=== PATIENT | female | born 1985 | race American Indian/Alaskan Native ===

== ENCOUNTER 2016-12-18 14:30 | Day surgery (SDC) | payer MEDICAID ==
[2016-12-18] MEDS ORDERED: NACL 0.9% 1000 ML 1,000 ML IV ONE ×2 (15:01→16:24)
[2016-12-18] MEDS ORDERED: TORADOL IV ONE (15:10)
[2016-12-18 15:44] LABS: Basophils % (Auto) 0.3 % (0.0-1.8); Eosinophils % (Auto) 0.3 % (0.0-4.3); Hematocrit 33.1 % (30.3-42.9); Hemoglobin 10.9 gm/dl (10.1-14.3); Mean Corpuscular HGB Conc 33 % (30-34); Mean Corpuscular Hemoglobin 29 pg (28-32); Mean Corpuscular Volume 87 fl (79-97); Platelet Count 228 K/mm3 (140-440); Red Blood Count 3.83 M/mm3 (3.65-5.03); Red Cell Distribution Width 13.2 % (13.2-15.2); White Blood Count 11.3 K/mm3 (4.5-11.0)
[2016-12-18 15:57] LABS: Anion Gap 19 mmol/L; BUN/Creatinine Ratio 11.25; Blood Urea Nitrogen 9 mg/dL (7-17); Calcium 8.6 mg/dL (8.4-10.2); Carbon Dioxide 21 mmol/L (22-30); Chloride 100.7 mmol/L (98-107); Glucose 123 mg/dL (65-100); Potassium 3.8 mmol/L (3.6-5.0); Sodium 137 mmol/L (137-145)
--- NOTE | 2016-12-18 16:55 | Ultrasound Report ---
FINAL REPORT EXAM: US OB TRANSVAGINAL HISTORY: vag bleeding, hypotension, recent miscaraige TECHNIQUE: Ultrasound obstetrical transvaginal PRIORS: None. FINDINGS: There is a hypoechoic ovoid focus within the cervix and lower uterine segment likely reflecting a gestational sac. Few echoes are seen internally no pole or yolk sac identified. No focal myometrial abnormality seen. Endometrial thickness is 1.7 centimeters The right ovary is 3.0 x 1.7 x 2.6 centimeters. Left ovary is 2.3 x 1.5 x 2.7 centimeters. No abnormal mass or cyst identified no free fluid seen within the cul-de-sac IMPRESSION: Hypoechoic focus at the cervix and lower uterine segment likely reflects gestational sac. No pole or yolk sac identified. Findings likely reflect spontaneous AB in progress.
--- NOTE | 2016-12-18 16:56 | Ultrasound Report ---
FINAL REPORT EXAM: US OB \T\lt; = 14 WEEKS FETUS HISTORY: vag bleeding, hypotension, recent miscaraige TECHNIQUE: Ultrasound obstetrical transabdominal PRIORS: None. FINDINGS: FINDINGS: There is a hypoechoic ovoid focus within the cervix and lower uterine segment likely reflecting a gestational sac. Few echoes are seen internally no pole or yolk sac identified. No focal myometrial abnormality seen. Endometrial thickness is 1.7 centimeters The right ovary is 3.0 x 1.7 x 2.6 centimeters. Left ovary is 2.3 x 1.5 x 2.7 centimeters. No abnormal mass or cyst identified no free fluid seen within the cul-de-sac IMPRESSION: Hypoechoic focus at the cervix and lower uterine segment likely reflects gestational sac. No pole or yolk sac identified. Findings likely reflect spontaneous AB in progress.
--- NOTE | 2016-12-18 16:59 | Emergency Department Report ---
ED Female HPI - General Chief complaint: Vaginal Bleeding Stated complaint: MISCARRIAGE Time Seen by Provider: 12/18/16 15:01 Source: patient, family Mode of arrival: Wheelchair Limitations: Physical Limitation - History of Present Illness Initial comments: 31-year-old female with no significant past medical history presents to the hospital complaining of and vaginal bleeding. Patient states she is having a miscarriage. She was seen 2 by My FUNDRAISING ASSISTANT. First she had an IUP but when she followed up yesterday no IUP was seen. Therefore patient was treated as a miscarriage and is scheduled for D&C on December 21. Patient has been having intermittent vaginal spotting but today bleeding increased with 4 pads used since this morning. She complains of moderate to severe suprapubic crampy pain that is worse with palpation. She also still lightheaded and dizzy. This is her fifth and she has 3 living children and one previous . - Related Data Home Medications Medication Instructions Recorded Confirmed Last Taken No Known Home Medications [No 12/18/16 12/18/16 Unknown Reported Home Medications] Allergies Allergy/AdvReac Type Severity Reaction Status Date / Time Fish Containing Products AdvReac Intermediate Hives Verified 08/23/14 00:04 ED Review of Systems ROS: Stated complaint: MISCARRIAGE Other details as noted in HPI Comment: All other systems reviewed and negative Other: Constitutional: No fevers chills Eyes: No eye pain visual changes ENT: No ear pain or throat pain Neck: Denies pain Respiratory: Denies cough wheezing shortness of breath Cardiovascular: Denies chest pain, palpitations GI: Denies aausea, vomiting, diarrhea : Denies dysuria Musculoskeletal: Denies back pain, joint swelling Skin: Denies rash, lesions, erythema Neurologic: Denies headache, numbness, weakness Psychiatric: Denies suicidal ideation, hallucinations ED Past Medical Hx - Past Medical History Previous Medical History?: Yes Hx Hypertension: No Hx Congestive Heart Failure: No Hx Diabetes: No Hx Deep Vein Thrombosis: No Hx Renal Disease: No Hx Sickle Cell Disease: No Hx Seizures: No Hx Asthma: No Hx COPD: No Hx HIV: No - Surgical History Past Surgical History?: No - Social History Smoking Status: Never Smoker Substance Use Type: Alcohol - Medications Home Medications: Home Medications Medication Instructions Recorded Confirmed Last Taken Type No Known Home Medications [No 07/29/17 07/29/17 Unknown History Reported Home Medications] ED Physical Exam - General Limitations: Physical Limitation - Other Other exam information: General: No limitations, patient is alert in no acute distress Head exam: Atraumatic, normocephalic Eyes exam: Normal appearance, pupils equal reactive to light, extraocular movements intact ENT: Moist mucous membrane, normal oropharynx Neck exam: Normal inspection, full range of motion, no meningismus nontender Respiratory exam: Clear to auscultation bilateral, no wheezes, rales, crackles Cardiovascular: Normal rate and rhythm, normal heart sounds Abdomen: Soft, nondistended, suprapubic tenderness, with normal bowel sounds, no rebound, or guarding Extremity: Full range of motion normal inspection no deformity Back: Normal Inspection, full range of motion, no tenderness Neurologic: Alert, oriented x3, cranial nerves intact, no motor or sensory deficit Psychiatric: normal affect, normal mood Skin: Warm, dry, intact ED Course Vital Signs 12/18/16 12/18/16 12/18/16 14:36 16:34 16:35 Temperature 98.1 F Pulse Rate 76 80 Respiratory 14 16 16 Rate Blood Pressure 75/45 Blood Pressure 103/61 [Left] O2 Sat by Pulse 100 100 100 Oximetry - Reevaluation(s) Reevaluation #1: 12/18/16 17:01 Blood pressure improving with normal saline. Toradol was given for pain 12/18/16 18:04 Pain improved after toradol - Consultations Consultation #1: 12/18/16 17:46 case D/w Dr Katz, take pt to OR for d and c ED Medical Decision Making - Lab Data Result diagrams: 12/18/16 15:18 12/18/16 15:18 Lab Results 12/18/16 12/18/16 12/18/16 Range/Units 15:18 15:18 15:18 WBC 11.3 H (4.5-11.0) K/mm3 RBC 3.83 (3.65-5.03) M/mm3 Hgb 10.9 (10.1-14.3) gm/dl Hct 33.1 (30.3-42.9) % MCV 87 (79-97) fl MCH 29 (28-32) pg MCHC 33 (30-34) % RDW 13.2 (13.2-15.2) % Plt Count 228 (140-440) K/mm3 Lymph % (Auto) 13.0 L (13.4-35.0) % Harper % (Auto) 3.5 (0.0-7.3) % Eos % (Auto) 0.3 (0.0-4.3) % Baso % (Auto) 0.3 (0.0-1.8) % Lymph # 1.5 (1.2-5.4) K/mm3 Harper # 0.4 (0.0-0.8) K/mm3 Eos # 0.0 (0.0-0.4) K/mm3 Baso # 0.0 (0.0-0.1) K/mm3 Seg Neutrophils % 82.9 H (40.0-70.0) % Seg Neutrophils # 9.3 H (1.8-7.7) K/mm3 Sodium 137 (137-145) mmol/L Potassium 3.8 (3.6-5.0) mmol/L Chloride 100.7 (98-107) mmol/L Carbon Dioxide 21 L (22-30) mmol/L Anion Gap 19 mmol/L BUN 9 (7-17) mg/dL Creatinine 0.8 (0.7-1.2) mg/dL Estimated GFR > 60 ml/min BUN/Creatinine Ratio 11.25 % Glucose 123 H (65-100) mg/dL Calcium 8.6 (8.4-10.2) mg/dL HCG, Quant 2695 H (0-4) mIU/mL Blood Type Antibody Screen ISMAEL Antibody Screen 12/18/16 Range/Units 15:21 WBC (4.5-11.0) K/mm3 RBC (3.65-5.03) M/mm3 Hgb (10.1-14.3) gm/dl Hct (30.3-42.9) % MCV (79-97) fl MCH (28-32) pg MCHC (30-34) % RDW (13.2-15.2) % Plt Count (140-440) K/mm3 Lymph % (Auto) (13.4-35.0) % Harper % (Auto) (0.0-7.3) % Eos % (Auto) (0.0-4.3) % Baso % (Auto) (0.0-1.8) % Lymph # (1.2-5.4) K/mm3 Harper # (0.0-0.8) K/mm3 Eos # (0.0-0.4) K/mm3 Baso # (0.0-0.1) K/mm3 Seg Neutrophils % (40.0-70.0) % Seg Neutrophils # (1.8-7.7) K/mm3 Sodium (137-145) mmol/L Potassium (3.6-5.0) mmol/L Chloride (98-107) mmol/L Carbon Dioxide (22-30) mmol/L Anion Gap mmol/L BUN (7-17) mg/dL Creatinine (0.7-1.2) mg/dL Estimated GFR ml/min BUN/Creatinine Ratio % Glucose (65-100) mg/dL Calcium (8.4-10.2) mg/dL HCG, Quant (0-4) mIU/mL Blood Type O POSITIVE Antibody Screen TNR ISMAEL Antibody Screen Negative - Radiology Data Radiology results: report reviewed Transvaginal/pelvic ultrasound: Hyperechoic focus at the cervix and lower uterine segment likely reflects gestational sac. No pole or yolk sac identified. Findings likely reflect spontaneous in progress - Medical Decision Making Patient's BP improved with IV fluids. H&H normal range at this time. Patient does not require RhoGAM based on blood type. Pt has been accepted by Dr Katz and will be transferred to OR for d and c - Differential Diagnosis miscarriage, ectopic, anemia, infection Critical Care Time: No Critical care attestation.: If time is entered above; I have spent that time in minutes in the direct care of this critically ill patient, excluding procedure time. ED Disposition Clinical Impression: Vaginal bleeding, Hypotension, Spontaneous Disposition: -09 OP ADMIT IP TO THIS HOSP Is pt being admited?: Yes Condition: Stable Time of Disposition: 17:46 (Dr Katz/OR)
--- NOTE | 2016-12-18 18:39 | Short Stay Summary ---
Short Stay Documentation Date of service: 12/18/16 Narrative H&P: 31 yo [id number] at 7wk 6d EGA seen in office Tuesday and found to have missed AB with empty sac. She was scheduled for D&C on TuesdayDec 21 but came into today with sx blood loss but normal Hct and pulse rate but low BP and bleeding and cramping. She will be taken to OR for suction curettage. MBT O pos, Hct 33. - History Principal diagnosis: incomplete Past Medical History: No medical history Past Surgical History: No surgical history Social history: no significant social history - Allergies and Medications Current Medications: Allergies Fish Containing Products Adverse Reaction (Intermediate, Verified 08/23/14 00:04 ) Hives Home Medications Medication Instructions Recorded Confirmed Last Taken Type No Known Home Medications [No 12/18/16 12/18/16 Unknown History Reported Home Medications] Active Medications Cefazolin Sodium (Ancef/Sterile Water 2 Gm/20 Ml) 2 gm in 20 mls @ 80 mls/hr IV PREOP NR PRN Reason: Protocol Lactated Ringer's (Lactated Ringers) 1,000 mls @ 150 mls/hr IV DIRECT SARA - Physical exam General appearance: mild distress HEENT: Atraumatic Lungs: Clear to auscultation, Normal air movement Breasts: deferred Heart: Regular rate, Normal S1 Gastrointestinal: no tenderness Female Genitourinary: normal Rectal Exam: deferred Extremities: no ischemia, No edema Neurological: Normal gait, Normal speech - Brief post op/procedure progress note Date of procedure: 12/18/16 Pre-op diagnosis: incomplete Post-op diagnosis: same Procedure: suction curettage Findings: 10 weeks size uterus, full of clots, gestational sac size compatible with 7 wk gestation, cervix dilated, large amt 500cc clots in vagina Surgeon: ALBERT ULLOA Estimated blood loss: other (500ml) Pathology: list (POC and clots) Specimen disposition: to lab Condition: stable - Hospital course Hospital course: stable post op - Disposition Condition at discharge: Good Disposition: DC-01 TO HOME OR SELFCARE - Discharge Diagnoses (1) Incomplete Status: Acute Comment: suction curettage Short Stay Discharge Plan Activity: other (pelvic rest) Weight Bearing Status: Full Weight Bearing Diet: regular Follow up with: ALBERT ULLOA MD [Staff Physician] - 7 Days Prescriptions: Ibuprofen [Motrin 800 MG tab] 800 mg PO Q8HR PRN #30 tablet PRN Reason: Pain
[2016-12-18] MEDS ORDERED: ZOFRAN ONE (18:46)
[2016-12-18] MEDS ORDERED: DIPRIVAN 10 MG/ML IV ONE (18:46)
[2016-12-18] MEDS ORDERED: DECADRON ONE (18:47)
[2016-12-18] MEDS ORDERED: SUBLIMAZE ONE (18:47)
[2016-12-18] MEDS ORDERED: XYLOCAINE MPF 2% ONE (18:47)
[2016-12-18] MEDS ORDERED: LACTATED RINGERS 1,000 ML IV SCH (19:00)
[2016-12-18] MEDS ORDERED: ANCEF/STERILE WATER 2 GM/20 ML 2 GM/20 ML SYRINGE IV NR (19:00)
[2016-12-18] MEDS ORDERED: PEPCID IV ONE (19:11)
--- NOTE | 2016-12-18 19:15 | Anesthesia Day of Surgery ---
Anesthesia Day of Surgery - Day of Surgery Patient Examined: Yes Patient H&P Reviewed: Yes Patient is NPO: Yes
--- NOTE | 2016-12-18 19:15 | Anesthesia Consultation ---
Anesthesia Consult and Med Hx Date of service: 12/18/16 - Airway Anesthetic Teeth Evaluation: Good ROM Head & Neck: Adequate Mental/Hyoid Distance: Adequate Mallampati Class: Class II Intubation Access Assessment: Probably Good - Pulmonary Exam CTA: Yes - Cardiac Exam Cardiac Exam: RRR - Pre-Operative Health Status ASA Pre-Surgery Classification: ASA2, Emergency Proposed Anesthetic Plan: General (NPO greater than 8 hours, no recent nausea) - Pulmonary Hx Asthma: No COPD: No Hx Pneumonia: No - Cardiovascular System Hx Hypertension: No - Central Nervous System Hx Seizures: No Hx Psychiatric Problems: No - Endocrine Hx Renal Disease: No Hx End Stage Renal Disease: No Hx Hypothyroidism: No Hx Hyperthyroidism: No - Hematic Hx Anemia: No Hx Sickle Cell Disease: No - Other Systems Hx Alcohol Use: Yes (ONCE A MONTH 1 GLASS OF WINE)
[2016-12-18] MEDS ORDERED: ZOFRAN IV PRN (19:16)
[2016-12-18] MEDS ORDERED: NORCO 5/325 PO PRN (19:16)
[2016-12-18] MEDS ORDERED: DILAUDID IV PRN (19:16)
[2016-12-18] MEDS ORDERED: NACL 0.9% 1000 ML 1,000 ML ONE (19:30)
[2016-12-18] MEDS ORDERED: ANCEF/STERILE WATER 2 GM/20 ML 2 GM/20 ML SYRINGE IV ONE (19:35)
[2016-12-18] MEDS ORDERED: METHERGINE IM ONE ×2 (19:46→19:59)
[2016-12-18] MEDS ORDERED: PEPCID IV NR (20:00)
--- NOTE | 2016-12-18 20:00 | Operative Report ---
Operative Report Operative Report: Date of procedure: 12/18/2016 Pre-operative diagnosis: Incomplete with bleeding and cramping and mild hypotension Post-operative diagnosis: Same Procedure name(s): Suction curettage for removal of incomplete and products of conception Surgeon: Margo Katz M.D. Progress Man: REJI Anesthesia: Gen. endotracheal Findings: Ten-week size uterus, full of clots sac and placenta delivered in toto and were compatible with 7 weeks' size, which was her estimated gestational age. Cervix was open and easily admitted a 7 mm suction curette EBL: 500 mL Procedure in detail: Patient was taken the operating room, placed in supine position. After adequate general endotracheal anesthesia was obtained, prepped and draped in the usual fashion in the dorsolithotomy position. Surgical timeout was taken with all members of the team attentive. Copious clots were removed from the vagina. The cervix was identified and grasped vertically with a single-tooth tenaculum. Dilation was not necessary #7 suction curette was inserted into the uterus and products of conception and copious clots and blood were extracted. Suction curette stopped up and was removed, and gestational sac was sitting at and suction was released and it was teased out with the endometrial forceps. Suction was then continued until the uterus was empty, as were evidenced by firm clamping down. Circumferential curettage was repeated and there were no additional products and the uterus was still clamped down and grasped the curette. The procedure was terminated and the patient was discharged to recovery room in good condition. Maternal blood type known to be O+
--- NOTE | 2016-12-18 20:06 | Post Anesthesia Evaluation ---
- Post Anesthesia Evaluation Patient Participated: Yes Airway Patent: Yes Stable Respiratory Function: Yes Temp > 96.8F: Yes Pain Manageable: Yes Adequeate Hydration: Yes Anesthesia Complications: No Block Receding Appropriately: Not Applicable
[2016-12-18 21:05] VITALS: BP 112/64
== END 2016-12-18 21:50 | disposition home or self-care (01) ==
LOC: ED 14:30 → OR 20:07
PROVIDERS: ATTEND Obstetrics & Gynecology
DX: O03.4 Incomplete spontaneous abortion without complication (principal); D64.9 Anemia, unspecified; I95.9 Hypotension, unspecified; Z91.018 Allergy to other foods; Z72.89 Other problems related to lifestyle
CPT/HCPCS: 36415; 59812; 76801; 76817; 80048; 84702; 85025; 86850; 86900; 86901; 88305; 96361; 96372; 96374; 99285; J0690; J1100; J1885; J2210; J2405; J2704; J3010; J7030

== ENCOUNTER 2017-06-26 14:46 | Observation (INO) | payer MEDICAID ==
[2017-06-26] MEDS ORDERED: ZOFRAN IV ONE ×2 (19:29→21:19)
[2017-06-26] MEDS ORDERED: NACL 0.9% 1000 ML 1,000 ML IV ONE (19:31)
--- NOTE | 2017-06-26 19:33 | Emergency Department Report ---
ED N/V/D HPI - General Chief complaint: Nausea/Vomiting/Diarrhea Stated complaint: NAUSEA AND VOMITING Time Seen by Provider: 06/26/17 19:03 Source: patient Mode of arrival: Ambulatory Limitations: No Limitations - History of Present Illness Initial comments: 31-year-old female past medical history hyperemesis gravidarum. She complains of 3 days of persistent nausea and vomiting and inability to tolerate by mouth fluid or food. Patient denies fevers chills dysuria or increased urinary frequency or hematuria. States she is having some crampy abdominal pain. Denies any current vaginal bleeding. Patient is awake alert and oriented 3. Has had 10+ vomiting episodes in last 24 hours. Patient states that her PATIENT ACCOUNT SPECIALIST is Dr. Rose. Last menstrual period February 2017. MD complaint: nausea, vomiting, abdominal pain Onset/Timin -: days(s) Description of Vomiting: food contents, watery Location: [place] Severity: mild Quality: cramping Consistency: constant Improves with: none Worsens with: none Associated Symptoms: denies other symptoms, nausea/vomiting - Related Data Previous Rx's Medication Instructions Recorded Last Taken Type Ibuprofen [Motrin 800 MG tab] 800 mg PO Q8HR PRN #30 tablet 12/18/16 Unknown Rx Allergies Allergy/AdvReac Type Severity Reaction Status Date / Time Fish Containing Products AdvReac Intermediate Hives Verified 06/26/17 15:04 ED Review of Systems ROS: Stated complaint: NAUSEA AND VOMITING Other details as noted in HPI Constitutional: denies: chills, fever Eyes: denies: eye pain, eye discharge, vision change ENT: denies: ear pain, throat pain Respiratory: denies: cough, shortness of breath, wheezing Cardiovascular: denies: chest pain, palpitations Endocrine: no symptoms reported Gastrointestinal: abdominal pain, nausea, vomiting. denies: diarrhea Genitourinary: denies: urgency, dysuria, discharge Musculoskeletal: denies: back pain, joint swelling, arthralgia Skin: denies: rash, lesions Neurological: denies: headache, weakness, paresthesias Psychiatric: denies: anxiety, depression Hematological/Lymphatic: denies: easy bleeding, easy bruising ED Past Medical Hx - Past Medical History Previous Medical History?: No Hx Hypertension: No Hx Congestive Heart Failure: No Hx Diabetes: No Hx Deep Vein Thrombosis: No Hx Renal Disease: No Hx Sickle Cell Disease: No Hx Seizures: No Hx Asthma: No Hx COPD: No Hx HIV: No - Surgical History Past Surgical History?: No - Social History Smoking Status: Never Smoker Substance Use Type: None - Medications Home Medications: Home Medications Medication Instructions Recorded Confirmed Last Taken Type Ibuprofen [Motrin 800 MG tab] 800 mg PO Q8HR PRN #30 tablet 12/18/16 Unknown Rx ED Physical Exam - General Limitations: No Limitations General appearance: alert, in no apparent distress - Head Head exam: Present: atraumatic, normocephalic - Eye Eye exam: Present: normal appearance, PERRL, EOMI - ENT ENT exam: Present: mucous membranes moist - Neck Neck exam: Present: normal inspection - Respiratory Respiratory exam: Present: normal lung sounds bilaterally. Absent: respiratory distress - Cardiovascular Cardiovascular Exam: Present: regular rate, normal rhythm. Absent: systolic murmur, diastolic murmur, rubs, gallop - GI/Abdominal GI/Abdominal exam: Present: soft (obese gravid abdomen), normal bowel sounds - Extremities Exam Extremities exam: Present: normal inspection - Back Exam Back exam: Present: normal inspection - Neurological Exam Neurological exam: Present: alert, oriented X3 - Psychiatric Psychiatric exam: Present: normal affect, normal mood - Skin Skin exam: Present: warm, dry, intact, normal color. Absent: rash ED Course Vital Signs 06/26/17 15:01 Temperature 97.5 F L Pulse Rate 84 Respiratory 16 Rate Blood Pressure 101/55 O2 Sat by Pulse 100 Oximetry ED Medical Decision Making - Lab Data Result diagrams: 06/26/17 19:33 06/26/17 19:33 - Medical Decision Making A/P: Hyperemesis gravidarum, severe nausea and vomiting of 1-IV fluid, antiemetics 2- patient failed the by mouth challenge cannot tolerate any by mouth fluid or food without vomiting in the ED 3- is discussed with of [facility] familiar with this patient. Patient to be admitted to mother baby unit for further IV fluid and antiemetics 4-urine shows ketones, CBC unremarkable, BMP shows no significant abnormality, amylase slightly elevated. Ultrasound shows live IUP at 16 weeks Critical care attestation.: If time is entered above; I have spent that time in minutes in the direct care of this critically ill patient, excluding procedure time. ED Disposition Clinical Impression: related nausea and vomiting, antepartum Nausea and vomiting Qualifiers: Vomiting type: unspecified Vomiting Intractability: intractable Qualified Code( s): R11.2 - Nausea with vomiting, unspecified Disposition: -09 OP ADMIT IP TO THIS HOSP Is pt being admited?: Yes Does the pt Need Aspirin: No Condition: Stable Referrals: PRIMARY CARE,MD [Primary Care Provider] - 3-5 Days
[2017-06-26 19:43] LABS: Bacteria,Urine 1+ /HPF (Negative); Bilirubin,Urine NEG (Negative); Blood,Urine NEG (Negative); Color,Urine Amber (Yellow); Mucus,Urine 3+ /HPF
[2017-06-26 19:51] LABS: Basophils % (Auto) 0.5 % (0.0-1.8); Eosinophils # (Auto) 0.1 K/mm3 (0.0-0.4); Eosinophils % (Auto) 1.4 % (0.0-4.3); Hematocrit 35.2 % (30.3-42.9); Hemoglobin 11.7 gm/dl (10.1-14.3); Lymphocytes % (Auto) 22.4 % (13.4-35.0); Mean Corpuscular HGB Conc 33 % (30-34); Mean Corpuscular Hemoglobin 28 pg (28-32); Mean Corpuscular Volume 84 fl (79-97); Monocytes # (Auto) 0.7 K/mm3 (0.0-0.8); Monocytes % (Auto) 7.8 % (0.0-7.3); Platelet Count 295 K/mm3 (140-440); Red Blood Count 4.18 M/mm3 (3.65-5.03)
[2017-06-26] MEDS ORDERED: D5W 1,000 ML IV SCH (20:00)
[2017-06-26 20:11] LABS: Lipase 28 units/L (13-60)
[2017-06-26 20:13] LABS: Alanine Aminotransferase 14 units/L (7-56); Albumin 3.8 g/dL (3.9-5); BUN/Creatinine Ratio 16; Blood Urea Nitrogen 8 mg/dL (7-17); Calcium 9.3 mg/dL (8.4-10.2); Hemolysis Index 7
[2017-06-26 20:15] LABS: Bilirubin,Direct < 0.2 mg/dL (0-0.2)
--- NOTE | 2017-06-26 21:10 | Ultrasound Report ---
FINAL REPORT PROCEDURE: US OB > = 14 WEEKS FETUS TECHNIQUE: Real-time transabdominal sonography of the uterus, placenta, amniotic fluid, adnexa, and fetus was performed with image documentation. Measurements were obtained to determine age/size. M-mode Doppler was used to document heartbeat. CPT 54920 HISTORY: abdominal pain COMPARISON: No prior studies are available for comparison. FINDINGS: GENERAL: IUP: Single living intrauterine . Position: Cephalic Placental position: Posterior and fundal, without previa. Amniotic fluid volume: Normal. MATERNAL: Uterus: Within normal limits. Cervical length: 3.7 cm. Internal Os: Closed. FETUS: Heart rate and rhythm: 150 BPM, regular MEASUREMENTS: BPD: 3.2 cm, 36 weeks 0 days HC: 12.0 cm, 16 weeks 0 days AC: 10.0 cm, 16 weeks 0 days FL: 2.0 cm, 15 weeks 5 days Mean Gestational Age (composite criteria): 16 weeks 0 days Estimated Due Date December 11, 2017 IMPRESSION: Single intrauterine gestation at 16 weeks 0 days. Estimated due date: December 11, 2017.
[2017-06-26] MEDS ORDERED: D5LR 1,000 ML IV SCH ×3 (22:00→23:00)
[2017-06-26] MEDS ORDERED: AMBIEN PO PRN (22:13)
[2017-06-26] MEDS ORDERED: MYLICON PO PRN (22:13)
[2017-06-26] MEDS ORDERED: TYLENOL PO PRN (22:13)
[2017-06-26] MEDS ORDERED: ZOFRAN IV PRN (22:13)
[2017-06-26] MEDS ORDERED: COLACE PO PRN (22:13)
--- NOTE | 2017-06-26 22:38 | History and Physical Report ---
History of Present Illness Date of examination: 06/26/17 Date of admission: 06/26/17 21:17 Chief complaint: nausea and vomiting History of present illness: Pt presented to ER stating she has not been able to keep anything down for the last 4 days. When seen in the office on 06/23/2017 pt c/o n/v and stated that she had relief with the zofran but was not able to refill the rx and when she does not take it she has the n/v. Pt was noted to have a normal K+ but ketones and weight loss with n/v in ER. Pt admitted for iv hydration and consult for zofran pump. EDC Calculations LMP: 12/05/2017 EDC Confirmation: 12/11/2017 Gestational Age: 11 4/7 weeks Past History : 5 Term Births: 3 Premature Births: 0 Living Children: 3 Para: 3 Mult. Births: 0 Prev : 0 Prev. attempt? 0 Aborta: 1 Elect. Ab: 0 Spont. Ab: 1 Ectopics: 0 # 1 Delivery date: 11/2010 Weeks Gestation: 39 labor: no Delivery type: Sex: Male weight: 6-2 # 2 Delivery date: 08/2012 Weeks Gestation: 39 labor: no Delivery type: Infant Sex: Male weight: 6-4 # 3 Delivery date: 08/23/2014 Weeks Gestation: 39.0 Delivery type: Vaginal Anesthesia type: epidural Delivery location: [facility] Sex: female weight: 7 Comments: none # 4 Delivery date: 12/18/2016 Weeks Gestation: 7 Delivery type: SAB Delivery location: [facility] Comments: D&C done Past Medical History: Reviewed history from 02/01/2012 and no changes required: Negative Past Medical History Past Surgical History: D&C: (12/18/2016) Family History Summary: Reviewed history and no changes required: 06/07/2017 No Known Family History - Entered On: 12/09/2016 Social History: Reviewed history from 12/09/2016 and no changes required: Patient is single Smoking History: Patient has never smoked. 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 Active Medications (reviewed today): ZOFRAN ODT 8 MG ORAL TABLET DISINTEGRATING (ONDANSETRON) 1 po q 6 hrs prn nausea VITAMINS () Current Allergies (reviewed today): * FISH (Critical) Past History Past Medical History: no pertinent history Past Surgical History: no surgical history - Obstetrical History Expected Date of Delivery: 12/04/17 Actual Gestation: 17 Week(s) 0 Day(s) : 5 Medications and Allergies Allergies Allergy/AdvReac Type Severity Reaction Status Date / Time Fish Containing Products AdvReac Intermediate Hives Verified 06/26/17 15:04 Home Medications Medication Instructions Recorded Confirmed Last Taken Type Ibuprofen [Motrin 800 MG tab] 800 mg PO Q8HR PRN #30 tablet 12/18/16 Unknown Rx Active Meds: Active Medications Acetaminophen (Tylenol) 650 mg PO Q4H PRN PRN Reason: Pain MILD(1-3)/Fever >100.5/DUNN Docusate Sodium (Colace) 100 mg PO Q12H PRN PRN Reason: Constipation Dextrose/Lactated Ringer's (D5lr) 1,000 mls @ 500 mls/hr IV DIRECT SARA Stop: 06/27/17 23:59 Last Admin: 06/26/17 22:11 Dose: 500 mls/hr Lactated Ringer's (Lactated Ringers) 1,000 mls @ 125 mls/hr IV DIRECT SARA Multivitamins/Iron/Calcium ( Vitamin) 1 each PO QDAY SARA Ondansetron HCl (Zofran) 4 mg IV Q6H PRN PRN Reason: Nausea And Vomiting Simethicone (Mylicon) 80 mg PO Q6H PRN PRN Reason: Gas pain Zolpidem Tartrate (Ambien) 10 mg PO ONCE PRN PRN Reason: Sleep - Vital Signs Vital signs: Vital Signs Temp Pulse Resp BP Pulse Ox 97.5 F L 84 16 101/55 100 06/26/17 15:01 06/26/17 15:01 06/26/17 15:01 06/26/17 15:01 06/26/17 15:01 Temp Pulse Resp BP Pulse Ox 98.1 F 82 17 98/56 99 06/26/17 21:37 06/26/17 21:37 06/26/17 21:37 06/26/17 21:37 02/04/18 21:37 Results Result Diagrams: 06/26/17 19:33 06/26/17 19:33 Abnormal lab results 06/26/17 06/26/17 06/26/17 Range/Units 19:00 19:33 19:33 [place] % (Auto) 7.8 H (0.0-7.3) % Carbon Dioxide 21 L (22-30) mmol/L Creatinine 0.5 L (0.7-1.2) mg/dL Albumin 3.8 L (3.9-5) g/dL Amylase (27-131) units/L HCG, Quant (0-4) mIU/mL Ur Specific Mathias 1.034 H (1.003-1.030) Urine WBC (Auto) 9.0 H (0.0-6.0) /HPF 06/26/17 06/26/17 Range/Units 19:33 19:33 [place] % (Auto) (0.0-7.3) % Carbon Dioxide (22-30) mmol/L Creatinine (0.7-1.2) mg/dL Albumin (3.9-5) g/dL Amylase 260 H (27-131) units/L HCG, Quant 24573 H (0-4) mIU/mL Ur Specific Mathias (1.003-1.030) Urine WBC (Auto) (0.0-6.0) /HPF All other labs normal. Assessment and Plan - Patient Problems (1) 17 weeks gestation of Current Visit: Yes Status: Acute (2) Nausea and vomiting Current Visit: Yes Status: Acute Qualifiers: Vomiting type: unspecified Vomiting Intractability: intractable Qualified Code(s): R11.2 - Nausea with vomiting, unspecified Plan to address problem: -pt admitted -consult for zofran pump -hyperemesis protocol.
[2017-06-26] MEDS ORDERED: LACTATED RINGERS 1,000 ML IV SCH (23:00)
[2017-06-27] MEDS: REGLAN IV SCH ×3 (01:03→14:30)
[2017-06-27] MEDS: PHENERGAN PR SCH ×3 (01:03→16:00)
--- NOTE | 2017-06-27 06:35 | Progress Note ---
Assessment and Plan - Patient Problems (1) Nausea and vomiting Onset Date: ~06/27/17 Current Visit: Yes Status: Acute Qualifiers: Vomiting type: unspecified Vomiting Intractability: intractable Qualified Code(s): R11.2 - Nausea with vomiting, unspecified Plan to address problem: pt sleeping soundly No vomits over night VSS Pt denies cramping, bleeding, lose of fluid. FHT Doppler. IUP @ 17 weeks with N&V Stable Will continue POC as ordered Advance diet as tolerated. Dietary to see pt. Subjective - Subjective Date of service: 06/27/17 (pt sleeping soundly; no vomitus in BS container) Principal diagnosis: hyperemisis Patient reports: voiding normally Objective - Vital Signs Latest vital signs: Vital Signs Temp Pulse Resp BP BP Pulse Ox 06/27/17 01:02 97.6 F 72 16 99/55 06/26/17 22:15 97.5 F L 79 18 100/61 06/26/17 21:37 98.1 F 82 17 98/56 99 06/26/17 15:01 97.5 F L 84 16 101/55 100 Intake and Output 06/26/17 06/26/17 06/27/17 14:59 22:59 06:59 Intake Total 30 Output Total 200 Balance 30 -200 Intake: IV 30 Right Antecubital 30 Output: Urine 200 Void 200 Other: Total, Output Amount 200 Voiding Method Toilet Weight 148 lb 12.992 oz 148 lb 12.992 oz Patient Weight 06/27/17 06:59 Weight 148 lb 12.992 oz - Exam Cardiovascular: Present: Regular rate Lungs: Present: Normal air movement Abdomen: Present: normal appearance, soft Extremities: Present: normal - Labs Labs: Abnormal lab results 06/26/17 06/26/17 06/26/17 Range/Units 19:00 19:33 19:33 [place] % (Auto) 7.8 H (0.0-7.3) % Carbon Dioxide 21 L (22-30) mmol/L Creatinine 0.5 L (0.7-1.2) mg/dL Albumin 3.8 L (3.9-5) g/dL Amylase (27-131) units/L HCG, Quant (0-4) mIU/mL Ur Specific [place] 1.034 H (1.003-1.030) Urine WBC (Auto) 9.0 H (0.0-6.0) /HPF 06/26/17 06/26/17 Range/Units 19:33 19:33 [place] % (Auto) (0.0-7.3) % Carbon Dioxide (22-30) mmol/L Creatinine (0.7-1.2) mg/dL Albumin (3.9-5) g/dL Amylase 260 H (27-131) units/L HCG, Quant 69481 H (0-4) mIU/mL Ur Specific [place] (1.003-1.030) Urine WBC (Auto) (0.0-6.0) /HPF
[2017-06-27] MEDS ORDERED: PRENATAL VITAMIN PO SCH ×2 (10:00)
--- NOTE | 2017-06-27 12:17 | Discharge Summary ---
Providers - Providers Date of Admission: 06/26/17 21:17 Date of discharge: 06/27/17 (No vomiting X 24 hours) Attending physician: RITA DYER 06/27/17 06:35 Consult to Dietitian/Nutrition [CONS] Routine Physician Instructions: Reason For Exam: Reason for Consult: Diet education Primary care physician: BUCKLE STAPLER Hospitalization Condition: Good Disposition: DC-01 TO HOME OR SELFCARE - Discharge Diagnoses (1) Nausea and vomiting Status: Acute Qualifiers: Vomiting type: unspecified Vomiting Intractability: intractable Qualified Code(s): R11.2 - Nausea with vomiting, unspecified Comment: no vomiting X 24 hours Core Measure Documentation - Palliative Care Palliative Care/ Comfort Measures: Not Applicable - Core Measures Any of the following diagnoses?: none - VTE Discharge Requirements Deep Vein Thrombosis/Pulmonary Embolism Present on Admission: No Has pt received <5 days of overlap therapy or INR<2.0: No Anticoagulant overlap therapy prescribed at discharge: No Contraindication No Overlap Therapy order at DC: Not Indicated - Acute IN Discharge Requirements Aspirin at discharge: No Reason for no aspirin on DC: Medical contraindication YOLI/ARB for LVSD if EF <40%: Not Applicable Reason for no YOLI/ARB: Medical contraindication Beta zenaida at discharge: No Reason for no beta zenaida on DC: Medical contraindication Statin for LDL = or >100 mg/dl on DC: Not Applicable Reason for no statin on DC: Medical contraindication - Heart Failure Discharge Requirements YOLI/ARB for LVSD if EF <40%: Not Applicable Reason for no YOLI/ARB: Medical contraindication Beta zenaida at discharge: No Reason for no beta zenaida on DC: Medical contraindication Exam - Constitutional Vitals: Temp Pulse Resp BP Pulse Ox 97.6 F 79 18 89/48 99 06/27/17 08:05 06/27/17 08:05 06/27/17 08:05 06/27/17 08:05 06/26/17 21:37 General appearance: Present: no acute distress, well-nourished - EENT Eyes: Present: PERRL ENT: hearing intact, clear oral mucosa - Neck Neck: Present: supple, normal ROM - Respiratory Respiratory effort: normal Respiratory: bilateral: CTA - Cardiovascular Heart Sounds: Present: S1 & S2. Absent: rub, click - Extremities Extremities: pulses symmetrical, No edema Peripheral Pulses: within normal limits - Abdominal General gastrointestinal: Present: soft, non-tender, non-distended, normal bowel sounds Female genitourinary: Present: normal - Rectal Rectal Exam: deferred - Integumentary Integumentary: Present: clear, warm, dry - Musculoskeletal Musculoskeletal: gait normal, strength equal bilaterally - Psychiatric Psychiatric: appropriate mood/affect, intact judgment & insight - Neurologic Neurologic: CNII-XII intact, moves all extremities Plan Activity: advance as tolerated Weight Bearing Status: Full Weight Bearing Diet: regular, per dietitian instruction Follow up with: PRIMARY CARE, [Primary Care Provider] - 3-5 Days LINDSAY AVIELS CNM [Advanced Practice Nurse] - 06/30/17 (Keep appointment as scheduled for 06-30-17 Hydration take medications as prescribed Call with concerns)
[2017-06-27 16:35] VITALS: BP 94/52
== END 2017-06-27 17:45 | disposition home or self-care (01) ==
LOC: ED 14:46 → OB 21:17 → INTOOBSV 21:17
PROVIDERS: ADMIT Emergency Medicine; ATTEND Obstetrics & Gynecology
DX: O21.9 Vomiting of pregnancy, unspecified (principal); Z3A.17 17 weeks gestation of pregnancy; Z79.899 Other long term (current) drug therapy
CPT/HCPCS: 36415; 76805; 80048; 80074; 81001; 82010; 82150; 82550; 82805; 83690; 84702; 85025; 87086; 96361; 96374; 96375; 96376; 99285; G0378; J2405; J2765; J7030; J7121

== ENCOUNTER 2017-11-02 16:50 | Outpatient (CLI) | payer MEDICAID ==
[2017-11-02] MEDS ORDERED: LACTATED RINGERS 500 ML IV ONE (17:23)
[2017-11-02 17:48] LABS: Bilirubin,Urine NEG (Negative); Blood,Urine NEG (Negative); Color,Urine Yellow (Yellow); Mucus,Urine FEW /HPF
[2017-11-02] MEDS ORDERED: BRETHINE SUB-Q ONE (18:08)
[2017-11-02 18:16] VITALS: BP 110/68
[2017-11-02] MEDS ORDERED: LACTATED RINGERS 1,000 ML IV SCH (19:00)
== END 2017-11-02 18:40 | disposition home or self-care (01) ==
LOC: TRG 16:50
PROVIDERS: ATTEND Obstetrics & Gynecology
DX: O47.03 False labor before 37 completed weeks of gestation, third trimester (principal); Z3A.35 35 weeks gestation of pregnancy
CPT/HCPCS: 59025; 81001; 96360; 96361; 96372; J3105; J7120

== ENCOUNTER 2017-11-12 02:07 | Outpatient (CLI) | payer MEDICAID ==
[2017-11-12] MEDS ORDERED: LACTATED RINGERS 500 ML IV ONE (02:15)
[2017-11-12 02:23] VITALS: BP 108/68
[2017-11-12 03:53] LABS: Bacteria,Urine 2+ /HPF (Negative); Bilirubin,Urine NEG (Negative); Blood,Urine SM (Negative); Color,Urine Yellow (Yellow); Mucus,Urine FEW /HPF
[2017-11-12 03:57] LABS: WBC,Urine > 182.0 /HPF (0.0-6.0)
[2017-11-12] MEDS ORDERED: ROCEPHIN IV STA (04:02)
[2017-11-12] MEDS ORDERED: NACL 0.9% IV STA (04:02)
[2017-11-12] MEDS ORDERED: cefTRIAXone 1 GM in NACL 0.9% 20 ML IV ONE (04:20)
== END 2017-11-12 04:56 | disposition home or self-care (01) ==
LOC: TRG 02:07
PROVIDERS: ATTEND Obstetrics & Gynecology
DX: O62.9 Abnormality of forces of labor, unspecified (principal); Z3A.35 35 weeks gestation of pregnancy
CPT/HCPCS: 59025; 81001; 87086; 96360; J0696; J7120

== ENCOUNTER 2017-11-26 11:19 | Inpatient (IN) | payer MEDICAID ==
--- NOTE | 2017-11-26 12:16 | History and Physical Report ---
History of Present Illness Date of examination: 11/26/17 Date of admission: 11/26/17 11:47 History of present illness: Patient presented to labor and delivery with complaints of ruptured membranes approximately 10 AM. Initial exam in triage patient was 4 cm and rapidly progressed. Patient's course uncomplicated patient is GBS positive Menstrual History LMP: 04/06/2017 Date: 05/26/2017 EDC Calculations LMP: 12/05/2017 EDC Confirmation: 12/11/2017 Past History : 5 Term Births: 3 Premature Births: 0 Living Children: 3 Para: 3 Mult. Births: 0 Prev : 0 Prev. attempt? 0 Aborta: 1 Elect. Ab: 0 Spont. Ab: 1 Ectopics: 0 # 1 Delivery date: 11/2010 Weeks Gestation: 39 labor: no Delivery type: Sex: Male weight: 6-2 # 2 Delivery date: 08/2012 Weeks Gestation: 39 labor: no Delivery type: Infant Sex: Male weight: 6-4 # 3 Delivery date: 08/23/2014 Weeks Gestation: 39.0 Delivery type: Vaginal Anesthesia type: epidural Delivery location: [facility] Sex: female weight: 7 Comments: none # 4 Delivery date: 12/18/2016 Weeks Gestation: 7 Delivery type: SAB Delivery location: [facility] Comments: D&C done Past Medical History: Negative Past Medical History Past Surgical History: D&C: (12/18/2016) Family History Summary: No Known Family History - Social History: Patient is single Smoking History: Patient has never smoked. 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) Family/Genetic History: other (see HPI) Social history: other (see HPI) - Obstetrical History Expected Date of Delivery: 12/11/17 Actual Gestation: 37 Week(s) 6 Day(s) : 5 Para: 3 Hx # Term Pregnancies: 3 Number of Pregnancies: 0 Spontaneous Abortions: 1 Induced : 0 Number of Living Children: 3 Medications and Allergies Allergies Allergy/AdvReac Type Severity Reaction Status Date / Time Fish Containing Products AdvReac Intermediate Hives Verified 06/26/17 15:04 Home Medications Medication Instructions Recorded Confirmed Last Taken Type Ibuprofen [Motrin 800 MG tab] 800 mg PO Q8HR PRN #30 tablet 12/18/16 Unknown Rx - Vital Signs Vital signs: Vital Signs Pulse BP 80 116/58 11/26/17 11:54 11/26/17 11:54 Temp Pulse Resp BP Pulse Ox 80 116/58 11/26/17 11:54 11/26/17 11:54 - Physical Exam Breasts: Positive: deferred Cardiovascular: Regular rate Lungs: Positive: Normal air movement Abdomen: Positive: normal appearance, soft Genitourinary (Female): Positive: normal external genitalia Uterus: Positive: enlarged Anus/Rectum: Positive: normal perianal skin Extremities: Positive: edema - Obstetrical FHR: category 1 Uterine Contraction Pattern: Regular Uterine Contraction Intensity: Strong/Firm Results Result Diagrams: 11/26/17 12:10 All other labs normal. Assessment and Plan - Patient Problems (1) Premature rupture of membranes (PROM) affecting fifth Current Visit: Yes Status: Acute (2) Encounter for full-term uncomplicated delivery Current Visit: Yes Status: Acute (3) Full-term premature rupture of membranes with onset of labor within 24 hours of rupture Current Visit: Yes Status: Acute Plan to address problem: Admit to labor and delivery see orders in chart (4) Carrier of group B Streptococcus Current Visit: Yes Status: Acute Plan to address problem: We'll give prophylaxis
[2017-11-26] MEDS ORDERED: PHENERGAN PO PRN ×2 (12:17→18:19)
[2017-11-26] MEDS ORDERED: ePHEDrine SULFATE IV PRN (12:17)
[2017-11-26] MEDS ORDERED: BRETHINE SUB-Q PRN (12:17)
[2017-11-26] MEDS ORDERED: BRETHINE IVP PRN (12:17)
[2017-11-26] MEDS ORDERED: STADOL IV PRN (12:17)
[2017-11-26 12:43] LABS: Hematocrit 31.4 % (30.3-42.9); Hemoglobin 10.3 gm/dl (10.1-14.3); Mean Corpuscular HGB Conc 33 % (30-34); Mean Corpuscular Volume 76 fl (79-97); Platelet Count 313 K/mm3 (140-440); Red Blood Count 4.15 M/mm3 (3.65-5.03); Red Cell Distribution Width 14.9 % (13.2-15.2)
[2017-11-26 12:44] LABS: Mean Corpuscular Hemoglobin 25 pg (28-32)
[2017-11-26] MEDS ORDERED: POLYCILLIN/NS 2 GM/100 ML 2 GM/100 ML BAG IV ONE (13:00)
[2017-11-26] MEDS ORDERED: ZOFRAN IM ONE (13:00)
[2017-11-26] MEDS ORDERED: XYLOCAINE 2% INFILTRATI ONE (13:00)
[2017-11-26] MEDS ORDERED: LACTATED RINGERS 1,000 ML IV SCH (13:00)
[2017-11-26] MEDS ORDERED: PITOCin/NS 20 UNIT/1000ML DRIP 20 UNITS/1,000 ML BAG IV SCH (13:00)
--- NOTE | 2017-11-26 13:43 | Procedure Note ---
OB Delivery Note - Delivery Date of Delivery: 11/26/17 Surgeon: EVELYN FRANCOIS Estimated blood loss: 300cc - Vaginal Delivery position: OA Intrapartum events: none Delivery induction: none Delivery monitor: external FHT, external uterine Route of delivery: Delivery placenta: spontaneous Episiotomy: none Delivery laceration: none Anesthesia: none Delivery comments: Patient rapidly advanced to complete dilatation and had a normal spontaneous vaginal delivery - Infant A at 1 minute: 8 at 5 minutes: 9 Gender: Female
[2017-11-26] MEDS: MOTRIN PO SCH ×3 (17:45→23:33)
[2017-11-26] MEDS ORDERED: MILK OF MAGNESIA PO PRN (18:19)
[2017-11-26] MEDS ORDERED: SODIUM CHLORIDE FLUSH SYRINGE 10 ML IV SCH (18:19)
[2017-11-26] MEDS ORDERED: TYLENOL PO PRN (18:19)
[2017-11-26] MEDS ORDERED: LANSINOH TP PRN (18:19)
[2017-11-26] MEDS ORDERED: BENADRYL PO PRN (18:19)
[2017-11-26] MEDS ORDERED: DULCOLAX PR PRN (18:19)
[2017-11-26] MEDS ORDERED: TUCKS PAD TP PRN (18:19)
[2017-11-26] MEDS: NORCO 5/325 PO PRN (21:22)
[2017-11-27 01:05] LABS: Hematocrit 22.9 % (30.3-42.9); Hemoglobin 7.8 gm/dl (10.1-14.3)
[2017-11-27] MEDS: NORCO 5/325 PO PRN ×2 (05:01→13:21)
[2017-11-27] MEDS: MOTRIN PO SCH ×4 (06:03→23:59)
--- NOTE | 2017-11-27 08:51 | Progress Note ---
Assessment and Plan - Patient Problems (1) Premature rupture of membranes (PROM) affecting fifth Current Visit: Yes Status: Resolved (2) Encounter for full-term uncomplicated delivery Current Visit: Yes Status: Acute Plan to address problem: We'll continue routine care. Patient desires discharge home tomorrow. 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 Patient is breast-feeding and desires condoms for control. Objective - Constitutional Vitals: Vital Signs - 12hr 11/26/17 11/26/17 11/26/17 21:39 22:22 23:33 Temperature 97.6 F Pulse Rate 79 Respiratory 18 18 18 Rate Blood Pressure 99/56 [Left] O2 Sat by Pulse 100 Oximetry 11/27/17 11/27/17 11/27/17 00:00 00:33 05:01 Temperature 97.9 F Pulse Rate 72 Respiratory 18 18 18 Rate Blood Pressure 98/52 [Left] O2 Sat by Pulse Oximetry 11/27/17 11/27/17 06:01 06:03 Temperature Pulse Rate Respiratory 18 18 Rate Blood Pressure [Left] O2 Sat by Pulse Oximetry General appearance: Present: no acute distress - Respiratory Respiratory effort: normal - Breasts Breasts: deferred - Cardiovascular Rhythm: regular Extremities: no ischemia, Full ROM Extremity abnormal: edema (1+) - Gastrointestinal General gastrointestinal: Present: soft, non-tender, other (firm fundus) - Genitourinary Female genitourinary: deferred - Integumentary Integumentary: clear, warm, dry - Neurologic Neurologic: moves all extremities - Psychiatric Psychiatric: appropriate mood/affect - Labs CBC & Chem 7: 11/27/17 00:31 Labs: Abnormal lab results 11/26/17 11/27/17 Range/Units 12:10 00:31 Hgb 7.8 L (10.1-14.3) gm/dl Hct 22.9 L D (30.3-42.9) % MCV 76 L (79-97) fl MCH 25 L (28-32) pg
[2017-11-27] MEDS ORDERED: PRENATAL VITAMIN PO SCH (10:00)
[2017-11-27 11:58] LABS: Hematocrit 24.8 % (30.3-42.9)
[2017-11-28] MEDS: MOTRIN PO SCH (05:55)
--- NOTE | 2017-11-28 07:15 | Discharge Summary ---
Providers - Providers Date of Admission: 11/26/17 11:47 Date of discharge: 11/28/17 (pt desires d/c) Attending physician: EVELYN FRANCOIS 11/26/17 18:19 Consult to Videogame Tester [CONS] Routine Reason For Exam: assistance with , SNS Primary care physician: RITA DYER Hospitalization Reason for admission: active labor Delivery: Episiotomy: none Laceration: none Incision: normal Other procedures: none complications: none Discharge diagnosis: IUP at term delivered [place] baby: female Hospital course: uncomplicated vaginal delivery Pt w/o complaint VSS FF below umb Lochia scant Perineum intact H&H stable Asymptomatic anemia Doing well s/p vag del P: d/c today with instructions RX po iron, colace, motrin. Condoms for BC. RTO 4-6 weeks Condition at discharge: Good Disposition: DC-01 TO HOME OR SELFCARE - Discharge Diagnoses (1) Spontaneous vaginal delivery Status: Acute Comment: RTO 4-6 weeks PP care Plan - Discharge Medications Prescriptions: Docusate Sodium [Colace] 100 mg PO BID PRN #60 capsule PRN Reason: Constipation Ferrous Sulfate [Feosol 325 MG tab] 325 mg PO BID #60 tablet Ibuprofen [Motrin 800 MG tab] 800 mg PO TID PRN #30 tablet PRN Reason: Pain - Provider Discharge Summary Activity: routine, no sex for 6 weeks, no heavy lifting 4 weeks, no strenuous exercise Diet: routine Instructions: routine Additional instructions: [] Smoking cessation referral if applicable(refer to patient education folder for contact #) [] Refer to [facility] Booklet Call your doctor immediately for: * Fever > 100.5 * Heavy vaginal bleeding ( >1 pad per hour) * Severe persistent headache * Shortness of breath * Reddened, hot, painful area to leg or breast * Drainage or odor from incision. * Keep incision clean and dry at all times and follow doctor's instructions regarding bathing/showering - Follow up plan Follow up: RITA DYER MD [Primary Care Provider] - 6 Weeks (Congratulations! Please call [phone] to schedule your visit in 4-6 weeks. Take medications as prescribed. Continue your vitamins. Call with concerns.)
[2017-11-28 12:22] VITALS: BP 110/71
== END 2017-11-28 14:30 | disposition home or self-care (01) | DRG 775 ==
LOC: TRG 11:19 → LD 11:47 → OB 16:23
PROVIDERS: ADMIT Obstetrics & Gynecology; ATTEND Obstetrics & Gynecology
PROC: 10E0XZZ Delivery of Products of Conception, External Approach (ICD-10-PCS; principal; 2017-11-26)
DX: O42.02 Full-term premature rupture of membranes, onset of labor within 24 hours of rupture (principal); Z37.0 Single live birth; Z91.013 Allergy to seafood; O99.824 Streptococcus B carrier state complicating childbirth; O99.02 Anemia complicating childbirth; D62 Acute posthemorrhagic anemia; Z3A.37 37 weeks gestation of pregnancy
CPT/HCPCS: 36415; 85014; 85018; 85027; 86592; 86850; 86900; 86901; 99211; G0463; J0290; J0595; J2405; J2590; J7120